=== PATIENT | female | born 1950 | race Caucasian/White ===

== ENCOUNTER 2018-07-29 11:21 | Observation (INO) | payer MEDICARE ==
[2018-07-29] MEDS ORDERED: fentaNYL 100 MCG/2 ML SDV IM ONE (11:42)
--- NOTE | 2018-07-29 11:45 | EDM.PDOC ---
ED HPI GENERAL MEDICAL PROBLEM - General Chief Complaint: Lower Extremity Injury/Pain Stated Complaint: INJURED LEFT FOOT Time Seen by Provider: 07/29/18 11:39 Source of Information: Reports: Patient, Family, RN Notes Reviewed History Limitations: Reports: No Limitations - History of Present Illness INITIAL COMMENTS - FREE TEXT/NARRATIVE: 68-year-old female presents emergency department today following an injury at home, she slipped on snow twisted her left ankle now is experiencing pain cannot ambulate Left Ankle Pain Score (Numeric/FACES): 10 - Related Data Allergies Allergy/AdvReac Type Severity Reaction Status Date / Time adhesive Allergy Rash Verified 05/12/16 08:30 buprenorphine [From Butrans] Allergy Lethargy Verified 05/12/16 08:30 niacin Allergy Rash Verified 05/12/16 08:30 acetaminophen [From Endocet] AdvReac Insomnia Verified 05/12/16 08:30 hydrocodone bitartrate AdvReac Insomnia Verified 05/12/16 08:30 [From Vicodin] milnacipran [From Savella] AdvReac Stomach Verified 05/12/16 09:13 Upset oxycodone HCl [From Endocet] AdvReac Insomnia Verified 05/12/16 08:30 pravastatin AdvReac Stomach Verified 05/12/16 09:13 Upset prochlorperazine edisylate AdvReac Muscle Verified 05/12/16 08:30 [From Compazine] Aches prochlorperazine maleate AdvReac Muscle Verified 05/12/16 08:30 [From Compazine] Aches simvastatin AdvReac Muscle Verified 05/12/16 08:30 Aches Home Meds: Home Meds Diclofenac Sodium [Voltaren 1% Gel] 4 gm TOP QID PRN 04/14/16 [History] Fluticasone Propionate [Flonase] 2 spray ROS DAILY 04/14/16 [History] Gabapentin [Neurontin] 100 mg PO BID 04/14/16 [History] Lisinopril [Prinivil] 40 mg PO DAILY 04/14/16 [History] Multivitamins,Therapeutic [Thera] 1 each PO DAILY 04/14/16 [History] Omeprazole Magnesium [Prilosec Otc] 20 mg PO DAILY 04/14/16 [History] metFORMIN [Glucophage] 1,000 mg PO BIDMEALS 04/14/16 [History] atorvaSTATin [Lipitor] 40 mg PO BEDTIME 04/27/16 [History] Cbd Oil 3 drop PO DAILY 02/28/18 [History] Citalopram [Citalopram HBr] 40 mg PO DAILY 07/10/18 [History] Oxybutynin 5 mg PO DAILY 07/10/18 [History] Hydrocodone/Acetaminophen [Hydrocodon-Acetaminophen 5-325] 1 each PO TID PRN # 20 tablet 07/29/18 [Rx] Past Medical History HEENT History: Reports: Cataract, Impaired Vision Other HEENT History: wears glasses Cardiovascular History: Reports: Arrhythmia, Heart Murmur, High Cholesterol, Hypertension Respiratory History: Reports: Sleep Apnea Gastrointestinal History: Reports: GERD 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: Musculoskeletal History: Reports: Arthritis, Back Pain, Chronic, Fibromyalgia, Neck Pain, Chronic, Osteoarthritis, Other (See Below) Other Musculoskeletal History: R hip pain Psychiatric History: Reports: Depression Endocrine/Metabolic History: Reports: Diabetes, Type II, Hypothyroidism, Osteoporosis Hematologic History: Reports: Iron Deficiency Dermatologic History: Reports: None - Infectious Disease History Infectious Disease History: Reports: Chicken Pox, Measles, Mumps - Past Surgical History HEENT Surgical History: Reports: Adenoidectomy, Naso-Sinus Surgery, Tonsillectomy Cardiovascular Surgical History: Reports: None Respiratory Surgical History: Reports: None GI Surgical History: Reports: Appendectomy, Cholecystectomy, Colonoscopy, EGD Female Surgical History: Reports: Breast Biopsy, Hysterectomy, Salpingo- Oophorectomy Endocrine Surgical History: Reports: None Musculoskeletal Surgical History: Reports: Arthroscopic Knee, Carpal Tunnel, Knee Replacement, Other (See Below) Other Musculoskeletal Surgeries/Procedures:: trigger finger right hand right knee replacement Dermatological Surgical History: Reports: Skin Biopsy Social & Family History - Family History Cardiac: Reports: Hypertension OBGYN: Reports: Endometriosis Musculoskeletal: Reports: Arthritis Neurological: Reports: Alzheimers Disease, CVA, Seizure Psychiatric: Reports: Anxiety, Depression Oncologic: Reports: Bone, Leukemia - Tobacco Use Smoking Status *Q: Current Every Day Smoker Years of Tobacco use: 25 Packs/Tins Daily: 0.5 - Caffeine Use Caffeine Use: Reports: Coffee - Recreational Drug Use Recreational Drug Use: No Review of Systems - Review of Systems Review Of Systems: See Below Musculoskeletal: Reports: Joint Pain (Left ankle) Skin: Reports: Bruising (Left ankle) Neurological: Reports: No Symptoms ED EXAM, GENERAL - Physical Exam Exam: See Below Free Text/Narrative:: Examination left ankle I do appreciate some deformity there is some edema around the ankle it is exquisitely tender to any palpation or movement pedal pulse is +2 ED TRAUMA EXTREMITY PROCEDURES - Splinting Left Lower Extremity Splint Site: left ankle Pre-Procedure NV Status: Normal Post-Procedure NV Status: Normal Splint Material: Fiberglass Splint Design: Posterior Applied & Form Fitted By: Provider, Nurse Provider Post-Splint Application NV Check: NV Status Normal, Good Position Complications: No Course - Vital Signs Last Recorded V/S: Last Vital Signs Temp 98.7 F 07/29/18 11:35 Pulse 87 07/29/18 11:35 Resp 16 07/29/18 11:35 BP 148/54 H 07/29/18 11:35 Pulse Ox 98 07/29/18 11:35 - Orders/Labs/Meds Orders: Active Orders 24 hr Category Date Time Status Peripheral IV Care [RC] . DIRECTED Care 07/29/18 12:13 Active Ankle wo Cont Lt [CT] Stat Exams 07/29/18 13:50 Taken Sodium Chloride 0.9% [Saline Flush] Med 07/29/18 12:13 Active 10 ml FLUSH ASDIRECTED PRN Peripheral IV Insertion Adult [OM.PC] Urgent Oth 07/29/18 12:13 Ordered Medication Orders Sodium Chloride (Saline Flush) 10 ml FLUSH ASDIRECTED PRN PRN Reason: Keep Vein Open Last Admin: 07/29/18 13:10 Dose: 10 ml Meds: Medications Generic Name Dose Route Start Last Admin Trade Name Freq PRN Reason Stop Dose Admin Sodium Chloride 10 ml 07/29/18 12:13 07/29/18 13:10 Saline Flush FLUSH 10 ml ASDIRECTED PRN Administration Keep Vein Open Discontinued Medications Generic Name Dose Route Start Last Admin Trade Name Freq PRN Reason Stop Dose Admin Fentanyl 50 mcg 07/29/18 11:42 07/29/18 11:49 Sublimaze IM 07/29/18 11:43 50 mcg ONETIME ONE Administration Fentanyl 50 mcg 07/29/18 13:19 07/29/18 13:27 Sublimaze IVPUSH 07/29/18 13:20 50 mcg ONETIME ONE Administration Departure - Departure Time of Disposition: 15:09 Disposition: Refer to Observation Condition: Fair Clinical Impression: Fracture of tibia with fibula, left, closed Qualifiers: Encounter type: initial encounter Qualified Code(s): S82.202A - Unspecified fracture of shaft of left tibia, initial encounter for closed fracture; S82.402A - Unspecified fracture of shaft of left fibula, initial encounter for closed fracture Dislocation of left talus Qualifiers: Encounter type: initial encounter Qualified Code(s): S93.05XA - Dislocation of left ankle joint, initial encounter - Discharge Information Prescriptions: Hydrocodone/Acetaminophen [Hydrocodon-Acetaminophen 5-325] 1 each PO TID PRN # 20 tablet PRN Reason: Pain Referrals: Titus Domingo MD [Primary Care Provider] - Forms: ED Department Discharge - My Orders Last 24 Hours: My Active Orders 07/29/18 12:13 Peripheral IV Care [RC] . DIRECTED Sodium Chloride 0.9% [Saline Flush] 10 ml FLUSH ASDIRECTED PRN Peripheral IV Insertion Adult [OM.PC] Urgent 07/29/18 13:50 Ankle wo Cont Lt [CT] Stat - Assessment/Plan Last 24 Hours: My Active Orders 07/29/18 12:13 Peripheral IV Care [RC] . DIRECTED Sodium Chloride 0.9% [Saline Flush] 10 ml FLUSH ASDIRECTED PRN Peripheral IV Insertion Adult [OM.PC] Urgent 07/29/18 13:50 Ankle wo Cont Lt [CT] Stat Plan: Assessment Acuity = acute Site and laterality = dislocation left talus status post reduction fracture left distal tib-fib closed Etiology = secondary trauma Manifestations = none Location of injury = Home Lab values = x-rays described fractures above Plan Called discussed case with Dr. Domingo at 1:10, he agreed to come and evaluate the patient in the emergency department after the posterior splint was placed for definitive plan, prescription written for hydrocodone 5/325 one tab by mouth 3 times a day when necessary total #20, Dr. Domingo, recommend CT scan after review CT scan elected to proceed with surgical intervention at this time therefore she will be admitted under his care This note was dictated using [employer] voice recognition software please call with any questions on syntax or grammar.
[2018-07-29] MEDS ORDERED: Sodium Chloride 0.9% 10 ML Syringe FLUSH PRN (12:13)
--- NOTE | 2018-07-29 12:34 | CR ---
Ankle Min 3V Lt CLINICAL HISTORY: Twisted, fall FINDINGS: The soft tissues are mildly swollen. There is a posterior dislocation of the foot with the fracture of the posterior tibial plafond and. There is also an angulated displaced fracture of the distal fibula aerated. Impression: Tibiotalar dislocation Fractures of the distal tibia and fibula
--- NOTE | 2018-07-29 13:12 | CR ---
Ankle 2V Lt CLINICAL HISTORY: Postreduction FINDINGS: The soft tissues are swollen. The previous tibiotalar dislocation is reduced. Fractures of the tibia and fibula are again seen. There is some asymmetry in the ankle mortise Impression: Reduction of tibiotalar dislocation Distal tibial and fibular fractures
[2018-07-29] MEDS ORDERED: fentaNYL 100 MCG/2 ML SDV IVPUSH ONE (13:19)
--- NOTE | 2018-07-29 15:31 | PCM.HP ---
H&P History of Present Illness - General Date of Service: 07/29/18 Admit Problem/Dx: Admission Diagnosis/Problem Admission Diagnosis/Problem Ankle fracture Source of Information: Patient, Old Records History Limitations: Reports: No Limitations - History of Present Illness Initial Comments - Free Text/Narative: Norma is a 68-year-old female who sustained a fall resulting in injury to her left ankle. She presented to the emergency room with obvious deformity of the left ankle. X-rays confirmed dislocation at the ankle joint. The ankle was reduced by the emergency room physician. She was then placed into a posterior splint. Post reduction x-rays suggested a fracture at the anterior aspect of the tibia as well as the posterior malleolus. A CT scan was obtained. This confirmed fracture of the posterior malleolus and a displaced fracture at the attachment of the anterior talofibular ligament and also revealed a nondisplaced distal fibular fracture and a nondisplaced medial malleolus fracture. Onset of Symptoms: Reports: Today, Sudden Location: Reports: Lower Extremity, Left Quality: Reports: Sharp, Stabbing Severity: Severe Improves with: Reports: Rest Worsens with: Reports: Movement Associated Symptoms: Reports: No Other Symptoms Left Ankle Pain Score (Numeric/FACES): 10 - Related Data Allergies/Adverse Reactions: Allergies Allergy/AdvReac Type Severity Reaction Status Date / Time adhesive Allergy Rash Verified 05/12/16 08:30 buprenorphine [From Butrans] Allergy Lethargy Verified 05/12/16 08:30 niacin Allergy Rash Verified 05/12/16 08:30 acetaminophen [From Endocet] AdvReac Insomnia Verified 05/12/16 08:30 hydrocodone bitartrate AdvReac Insomnia Verified 05/12/16 08:30 [From Vicodin] milnacipran [From Savella] AdvReac Stomach Verified 05/12/16 09:13 Upset oxycodone HCl [From Endocet] AdvReac Insomnia Verified 05/12/16 08:30 pravastatin AdvReac Stomach Verified 05/12/16 09:13 Upset prochlorperazine edisylate AdvReac Muscle Verified 05/12/16 08:30 [From Compazine] Aches prochlorperazine maleate AdvReac Muscle Verified 05/12/16 08:30 [From Compazine] Aches simvastatin AdvReac Muscle Verified 05/12/16 08:30 Aches Home Medications: Home Meds Diclofenac Sodium [Voltaren 1% Gel] 4 gm TOP QID PRN 04/14/16 [History] Fluticasone Propionate [Flonase] 2 spray ROS DAILY 04/14/16 [History] Gabapentin [Neurontin] 100 mg PO BID 04/14/16 [History] Lisinopril [Prinivil] 40 mg PO DAILY 04/14/16 [History] Multivitamins,Therapeutic [Thera] 1 each PO DAILY 04/14/16 [History] Omeprazole Magnesium [Prilosec Otc] 20 mg PO DAILY 04/14/16 [History] metFORMIN [Glucophage] 1,000 mg PO BIDMEALS 04/14/16 [History] atorvaSTATin [Lipitor] 40 mg PO BEDTIME 04/27/16 [History] Cbd Oil 3 drop PO DAILY 02/28/18 [History] Citalopram [Citalopram HBr] 40 mg PO DAILY 07/10/18 [History] Oxybutynin 5 mg PO DAILY 07/10/18 [History] Hydrocodone/Acetaminophen [Hydrocodon-Acetaminophen 5-325] 1 each PO TID PRN # 20 tablet 07/29/18 [Rx] Past Medical History HEENT History: Reports: Cataract, Impaired Vision Other HEENT History: wears glasses Cardiovascular History: Reports: Arrhythmia, Heart Murmur, High Cholesterol, Hypertension Respiratory History: Reports: Sleep Apnea Gastrointestinal History: Reports: GERD Genitourinary History: Reports: None 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: Musculoskeletal History: Reports: Arthritis, Back Pain, Chronic, Fibromyalgia, Neck Pain, Chronic, Osteoarthritis, Other (See Below) Other Musculoskeletal History: R hip pain Psychiatric History: Reports: Depression Endocrine/Metabolic History: Reports: Diabetes, Type II, Hypothyroidism, Osteoporosis Hematologic History: Reports: Iron Deficiency Dermatologic History: Reports: None - Infectious Disease History Infectious Disease History: Reports: Chicken Pox, Measles, Mumps - Past Surgical History HEENT Surgical History: Reports: Adenoidectomy, Naso-Sinus Surgery, Tonsillectomy Cardiovascular Surgical History: Reports: None Respiratory Surgical History: Reports: None GI Surgical History: Reports: Appendectomy, Cholecystectomy, Colonoscopy, EGD Female Surgical History: Reports: Breast Biopsy, Hysterectomy, Salpingo- Oophorectomy Endocrine Surgical History: Reports: None Musculoskeletal Surgical History: Reports: Arthroscopic Knee, Carpal Tunnel, Knee Replacement, Other (See Below) Other Musculoskeletal Surgeries/Procedures:: trigger finger right hand right knee replacement Dermatological Surgical History: Reports: Skin Biopsy Social & Family History - Family History Cardiac: Reports: Hypertension OBGYN: Reports: Endometriosis Musculoskeletal: Reports: Arthritis Neurological: Reports: Alzheimers Disease, CVA, Seizure Psychiatric: Reports: Anxiety, Depression Oncologic: Reports: Bone, Leukemia - Tobacco Use Smoking Status *Q: Current Every Day Smoker Years of Tobacco use: 25 Packs/Tins Daily: 0.5 - Caffeine Use Caffeine Use: Reports: Coffee - Recreational Drug Use Recreational Drug Use: No H&P Review of Systems - Review of Systems: Review Of Systems: ROS reveals no pertinent complaints other than HPI. Exam - Exam Exam: See Below - Vital Signs Vital Signs: Last Vital Signs Temp 37.1 C 07/29/18 11:35 Pulse 87 07/29/18 11:35 Resp 16 07/29/18 11:35 BP 148/54 H 07/29/18 11:35 Pulse Ox 98 07/29/18 11:35 Weight: 66.224 kg - Exam General: Alert, Oriented, 4 HEENT: PERRLA, Hearing Intact, Mucosa Moist & [place], Nares Patent, Normal Nasal Septum, Posterior Pharynx Clear, Conjunctiva Clear, EOMI, EACs Clear, TMs Clear Neck: Supple, Trachea Midline, 2 Lungs: Clear to Auscultation, Normal Respiratory Effort Cardiovascular: Regular Rate, Regular Rhythm GI/Abdominal Exam: Normal Bowel Sounds, Soft, Non-Tender, No Organomegaly, No Distention, No Abnormal Bruit, No Mass, Pelvis Stable (Female) Exam: Deferred Rectal (Female) Exam: Deferred Back Exam: Normal Inspection, Full Range of Motion, NT Extremities: Joint Swelling, Limited Range of Motion Peripheral Pulses: 2+: Radial (L), Radial (R), Dorsalis Pedis (L), Dorsalis Pedis (R) Skin: Warm, Dry, Intact Neurological: Cranial Nerves Intact, Reflexes Equal Bilateral Neuro Extensive - Mental Status: Alert, Oriented x3, Normal Mood/Affect, Normal Cognition Neuro Extensive - Motor, Sensory, Reflexes: CN II-XII Intact, Normal Gait, Normal Reflexes Psychiatric: Alert, Normal Affect, Normal Mood Physical Exam Comments:: The left ankle has been reduced and placed into a posterior splint. She is relatively comfortable without motion. Toes are pink and warm capillary refill is brisk and sensation is normal *Q Meaningful Use (ADM) - VTE *Q VTE Pharmacological Contraindications *Q: Patient Scheduled Surgery - VTE Risk Assess *Q Each Risk Factor Represents 1 Point: Minor Surgery Planned Total Score 1 Point Risk Factors: 1 Each Risk Factor Represents 2 Points: Age 60 - 74 Years Total Score 2 Point Risk Factors: 2 Each Risk Factor Represents 3 Points: None Total Score 3 Point Risk Factors: 0 Each Risk Factor Represents 5 Points: None Total Score 5 Point Risk Factors: 0 Venous Thromboembolism Risk Factor Score *Q: 3 - Problem List (1) Dislocation of left talus SNOMED Code(s): 611360686 ICD Code: S93.05XA - DISLOCATION OF LEFT ANKLE JOINT, INITIAL ENCOUNTER Status: Acute Current Visit: Yes Qualifiers: Encounter type: initial encounter Qualified Code(s): S93.05XA - Dislocation of left ankle joint, initial encounter (2) Fracture of tibia with fibula, left, closed SNOMED Code(s): 033003078 ICD Code: S82.202A - UNSP FRACTURE OF SHAFT OF LEFT TIBIA, INIT FOR CLOS FX; S82.402A - UNSP FRACTURE OF SHAFT OF LEFT FIBULA, INIT FOR CLOS FX Status: Acute Current Visit: Yes Qualifiers: Encounter type: initial encounter Qualified Code(s): S82.202A - Unspecified fracture of shaft of left tibia, initial encounter for closed fracture; S82.402A - Unspecified fracture of shaft of left fibula, initial encounter for closed fracture Problem List Initiated/Reviewed/Updated: Yes Orders Last 24hrs: Active Orders 24 hr Category Date Time Status Admission Diagnosis [ADT] Urgent ADT 07/29/18 15:13 Ordered Peripheral IV Care [RC] . DIRECTED Care 07/29/18 12:13 Active Verify Patient Consent Obtain [RC] ASDIRECTED Care 07/29/18 15:14 Ordered NPO [Nothing Per Oral Diet] [DIET] Diet 07/29/18 Dinner Ordered Ankle wo Cont Lt [CT] Stat Exams 07/29/18 13:50 Taken Sodium Chloride 0.9% [Saline Flush] Med 07/29/18 12:13 Active 10 ml FLUSH ASDIRECTED PRN ceFAZolin [Ancef] 1 gm Med 07/29/18 15:17 Ordered Premix Bag 1 bag IV ONETIME Peripheral IV Insertion Adult [OM.PC] Urgent Oth 07/29/18 12:13 Ordered Medication Orders Cefazolin Sodium/Dextrose 1 gm (/ Premix) 50 mls @ 100 mls/hr IV ONETIME ONE Stop: 07/29/18 16:29 Sodium Chloride (Saline Flush) 10 ml FLUSH ASDIRECTED PRN PRN Reason: Keep Vein Open Last Admin: 07/29/18 13:10 Dose: 10 ml Assessment/Plan Comment:: I reviewed the results of the x-rays and CT scan with Norma and her . Informed them that it is possible to treat this nonoperatively but there is risk of displacement of the fractures and instability of the ankle and increased risk of posttraumatic arthritis. The other option would be open reduction and internal fixation with plate on the fibula and screw fixation of the medial and posterior malleoli as well as the anterior table fibular fragment. This would allow anatomic, or near anatomic, reduction and fixation which would allow earlier range of motion and weightbearing and prevent displacement. Risks, benefits and potential complications of conservative versus surgical treatments were discussed. Plan open reduction and internal fixation left ankle. Patient agrees with the plan. She will be admitted for surgery. Plan will be to keep her overnight for pain control and monitoring of circulatory status and compartment syndrome as well as physical therapy for ambulation with crutches and/or walker.
[2018-07-29] MEDS ORDERED: fentaNYL 250 MCG/5 ML SDV ONE (15:38)
[2018-07-29] MEDS ORDERED: Ondansetron 4 MG/2 ML SDV ONE (15:45)
[2018-07-29] MEDS ORDERED: Propofol 200 MG/20 ML SDV ONE (15:45)
[2018-07-29] MEDS ORDERED: Dexamethasone 4 MG/ML SDV ONE (15:45)
[2018-07-29] MEDS ORDERED: Rocuronium 50 MG/5 ML Vial ONE (15:45)
[2018-07-29] MEDS ORDERED: Succinylcholine 200 MG/10 ML MDV ONE (15:45)
[2018-07-29] MEDS ORDERED: Bupivacaine 0.5% 50 ML MDV ONE (15:59)
[2018-07-29] MEDS ORDERED: ceFAZolin 1 GM in Premix Bag 1 BAG IV ONE (16:00)
[2018-07-29] MEDS ORDERED: Glycopyrrolate 0.2 MG/ML 5 ML MDV ONE (17:03)
[2018-07-29] MEDS ORDERED: Neostigmine Methylsulfate 1 MG/ML 5 ML Syringe ONE (17:03)
[2018-07-29] MEDS ORDERED: Sodium Chloride 0.9% 1,000 ML IV SCH (18:15)
[2018-07-29] MEDS ORDERED: Bupivacaine 0.5% 30 ML SDV INFILT ONE (18:54)
[2018-07-29] MEDS: Morphine 2 MG/ML Syringe IVPUSH PRN ×2 (19:09→21:22)
--- NOTE | 2018-07-29 19:46 | PCM.OPNOTE ---
- General Post-Op/Procedure Note Date of Surgery/Procedure: 07/29/18 Operative Procedure(s): OPen Reduction and Internal FFixation Left Ankle Findings: Displaced posterior malleolus and anterior talofibular ligament attachment fragment, non-displaced medial and lateral malleoli fractures. Pre Op Diagnosis: dislocation left ankle with multiple fractures Post-Op Diagnosis: dislocation left ankle with multiple fractures Anesthesia Technique: General ET Tube Secondary Surgeon: Titus Domingo EBCachorro in mLs: 10 Condition: Good Free Text/Narrative:: Indications; Norma is a 68-year-old female who presented to the emergency room with a dislocation of the left ankle. Post reduction x-rays and CT scan revealed displaced fracture fragments, specifically the posterior malleolus and anterior tibia at the insertion of the talofibular ligament. The CT also revealed nondisplaced fractures of the medial and lateral malleoli. Due to the displaced fragments potential for instability of the other fractures, open reduction internal fixation is recommended. Risks, benefits and potential complications were discussed with Norma and her family They agree with the plan. Procedure: After adequate anesthesia was obtained and 1 g of Ancef was given IV the patient was placed supine with a tourniquet about the left upper thigh. Left leg and foot were then prepped and draped in a sterile fashion.Leg was exsanguinated and 250 mg of mercury pressure was used for the tourniquet. Longitudinal incision was made over the fibula and carried down through the subcutaneous tissues. A contoured Synthes lateral malleolus plate was secured to the lateral fibula using 3.5cortical screws proximally and 2.7 locking screws distally. Position of the fracture and hardware were confirmed using fluoroscopy. Dissection then carried slightly medial over the anterior talofibular ligament. Branch of the nerve and vein were dissected away from the fracture fragment the displaced fragment was readily identified. This was reduced into position and held with a periosteal elevator. The fragment was then drilled and a partially threaded cancellus screw with a washer was used to compress the fragment into position. Position was confirmed using fluoroscopy. A separate small incision was made over the medial malleolus. A second 40 mm partially threaded cancellus screw was then placed in the medial malleolus, position confirmed again with fluoroscopy. A separate incision was made posteriorly adjacent to the Achilles tendon. Blunt dissection was carried down to the level of the posterior malleolus fragment.With the foot held in dorsiflexion and the periosteal elevator used to reduce the fragment it was drilled and a partially threaded cancellus screw with a washer was placed compressing the fracture. Final position of all hardware was confirmed using fluoroscopy. We then irrigated. Deep layer was closed laterally with 0 Vicryl. Skin was closed with 2-0 Vicryl and 3-0 Monocryl subcuticular stitch. Steri- Strips were applied.Incisions and soft tissues were then infiltrated with 0.5% Marcaine. Sterile dressing was then applied and a well-padded AO splint was then placed with the foot in neutral position. Patient tolerated the procedure well and there were no complications she was taken from the operating room in a stable condition
[2018-07-29] MEDS ORDERED: atorvaSTATin 20 MG Tab PO SCH (21:00)
[2018-07-29] MEDS: Acetaminophen/HYDROcodone 325-5 MG Tab PO PRN (21:21)
[2018-07-29] MEDS: Gabapentin 100 MG Cap PO SCH (21:35)
[2018-07-30] MEDS: Acetaminophen/HYDROcodone 325-5 MG Tab PO PRN ×4 (01:14→10:52)
[2018-07-30] MEDS: Morphine 2 MG/ML Syringe IVPUSH PRN ×4 (01:14→14:18)
[2018-07-30] MEDS ORDERED: Pantoprazole 40 MG Tab.CR PO SCH (07:30)
[2018-07-30] MEDS ORDERED: metFORMIN 500 MG Tab PO SCH (08:00)
[2018-07-30] MEDS ORDERED: Oxybutynin 5 MG Tab PO SCH (09:00)
[2018-07-30] MEDS ORDERED: Lisinopril 20 MG Tab PO SCH (09:00)
[2018-07-30] MEDS ORDERED: Citalopram 20 MG Tab PO SCH (09:00)
[2018-07-30] MEDS: Gabapentin 100 MG Cap PO SCH (10:53)
[2018-07-30 11:13] VITALS: BP 124/56
== END 2018-07-30 14:23 | disposition home health service (06) ==
LOC: JP.ED 11:21 → JP.ACU 15:10 → JP.MS 18:13
PROVIDERS: ADMIT Specialist; ATTEND Specialist
DX: S82.845A Nondisplaced bimalleolar fracture of left lower leg, initial encounter for closed fracture (principal); S82.892A Other fracture of left lower leg, initial encounter for closed fracture; S93.05XA Dislocation of left ankle joint, initial encounter; I10 Essential (primary) hypertension; E11.9 Type 2 diabetes mellitus without complications; F17.200 Nicotine dependence, unspecified, uncomplicated; G47.33 Obstructive sleep apnea (adult) (pediatric); F32.9 Major depressive disorder, single episode, unspecified; E03.9 Hypothyroidism, unspecified; E78.00 Pure hypercholesterolemia, unspecified; Z79.84 Long term (current) use of oral hypoglycemic drugs; Z79.899 Other long term (current) drug therapy; W19.XXXA Unspecified fall, initial encounter
CPT/HCPCS: 27822; 36415; 73600; 73610; 73700; 76000; 80048; 82962; 85025; 96372; 96374; 96375; 97162; 97165; 97530; 97535; 99285; A9270; C1713; J0330; J0690; J1100; J2270; J2405; J2704; J2710; J3010; J3490; J7030; G0378

== ENCOUNTER 2018-09-28 15:33 | Emergency (ER) | payer MEDICARE ==
[2018-09-28] MEDS ORDERED: ALPRAZolam 0.25 MG Tab PO ONE ×2 (16:13→16:54)
[2018-09-28] MEDS ORDERED: traMADol 50 MG Tab PO ONE ×2 (16:13→16:53)
--- NOTE | 2018-09-28 16:19 | EDM.PDOC ---
ED HPI GENERAL MEDICAL PROBLEM - General Chief Complaint: General Stated Complaint: SHAKING ALL OVER Time Seen by Provider: 09/28/18 16:05 Source of Information: Reports: Patient, Old Records History Limitations: Reports: No Limitations - History of Present Illness INITIAL COMMENTS - FREE TEXT/NARRATIVE: 68 yo female with depression not responding satisfactorily to her current antidepressants and chronic fibromyalgia presents with worsening of her fibromyalgia and a total body tremor that began about 1 pm today. Has had the tremor in the past and it resolved on its own after a couple of hrs. Has never seen her provider for the tremors. Had some tingling of her hands, damion her thumbs earlier. 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) - Related Data Allergies Allergy/AdvReac Type Severity Reaction Status Date / Time adhesive Allergy Rash Verified 05/12/16 08:30 buprenorphine [From Butrans] Allergy Lethargy Verified 05/12/16 08:30 niacin Allergy Rash Verified 05/12/16 08:30 acetaminophen [From Endocet] AdvReac Insomnia Verified 05/12/16 08:30 hydrocodone bitartrate AdvReac Insomnia Verified 05/12/16 08:30 [From Vicodin] milnacipran [From Savella] AdvReac Stomach Verified 05/12/16 09:13 Upset oxycodone HCl [From Endocet] AdvReac Insomnia Verified 05/12/16 08:30 pravastatin AdvReac Stomach Verified 05/12/16 09:13 Upset prochlorperazine edisylate AdvReac Muscle Verified 05/12/16 08:30 [From Compazine] Aches prochlorperazine maleate AdvReac Muscle Verified 05/12/16 08:30 [From Compazine] Aches simvastatin AdvReac Muscle Verified 05/12/16 08:30 Aches Home Meds: Home Meds Diclofenac Sodium [Voltaren 1% Gel] 4 gm TOP QID PRN 04/14/16 [History] Fluticasone Propionate [Flonase] 2 spray ROS DAILY 04/14/16 [History] Gabapentin [Neurontin] 100 mg PO BID 04/14/16 [History] Lisinopril [Prinivil] 40 mg PO DAILY 04/14/16 [History] Multivitamins,Therapeutic [Thera] 1 each PO DAILY 04/14/16 [History] Omeprazole Magnesium [Prilosec Otc] 20 mg PO DAILY 04/14/16 [History] metFORMIN [Glucophage] 1,000 mg PO BIDMEALS 04/14/16 [History] atorvaSTATin [Lipitor] 40 mg PO DAILY 04/27/16 [History] Cbd Oil 3 drop PO DAILY 02/28/18 [History] Citalopram [Citalopram HBr] 40 mg PO DAILY 07/10/18 [History] Oxybutynin 5 mg PO BID 07/10/18 [History] Past Medical History HEENT History: Reports: Cataract, Impaired Vision Other HEENT History: wears glasses Cardiovascular History: Reports: Arrhythmia, Heart Murmur, High Cholesterol, Hypertension Respiratory History: Reports: Sleep Apnea, Other (See Below) Other Respiratory History: 0.5ppd cigarette smoking Gastrointestinal History: Reports: GERD Genitourinary History: Reports: None 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: Musculoskeletal History: Reports: Arthritis, Back Pain, Chronic, Fracture, Fibromyalgia, Neck Pain, Chronic, Osteoarthritis, Other (See Below) Other Musculoskeletal History: R hip pain, h/o B trochanteric bursitis (2013), h /o L proximal foot fracture (patient notes on dorsal aspect, age 30's), h/o coccyx fracture from fall down home stairs (reports no residual issues) Neurological History: Reports: None Psychiatric History: Reports: Depression Endocrine/Metabolic History: Reports: Diabetes, Type II, Hypothyroidism, Osteoporosis Hematologic History: Reports: Iron Deficiency Immunologic History: Reports: None Oncologic (Cancer) History: Reports: None Dermatologic History: Reports: None - Infectious Disease History Infectious Disease History: Reports: Chicken Pox, Measles, Mumps - Past Surgical History Head Surgeries/Procedures: Reports: None HEENT Surgical History: Reports: Adenoidectomy, Naso-Sinus Surgery, Tonsillectomy Cardiovascular Surgical History: Reports: None Respiratory Surgical History: Reports: None GI Surgical History: Reports: Appendectomy, Cholecystectomy, Colonoscopy, EGD Female Surgical History: Reports: Breast Biopsy, Hysterectomy, Salpingo- Oophorectomy Endocrine Surgical History: Reports: None Musculoskeletal Surgical History: Reports: Arthroscopic Knee, Carpal Tunnel, Knee Replacement, Shoulder Replacement, Other (See Below) Other Musculoskeletal Surgeries/Procedures:: trigger finger right hand; R knee arthroscopy torn meniscus (2015), R TKA, B TSA Dermatological Surgical History: Reports: Skin Biopsy Social & Family History - Family History Cardiac: Reports: Hypertension OBGYN: Reports: Endometriosis Musculoskeletal: Reports: Arthritis Neurological: Reports: Alzheimers Disease, CVA, Seizure Psychiatric: Reports: Anxiety, Depression Oncologic: Reports: Bone, Leukemia - Tobacco Use Smoking Status *Q: Light Tobacco Smoker Years of Tobacco use: 34 Packs/Tins Daily: 0.1 - Caffeine Use Caffeine Use: Reports: Coffee - Recreational Drug Use Recreational Drug Use: No ED ROS GENERAL - Review of Systems Review Of Systems: See Below Constitutional: Reports: No Symptoms HEENT: Reports: No Symptoms Respiratory: Reports: No Symptoms Cardiovascular: Reports: No Symptoms Endocrine: Reports: No Symptoms GI/Abdominal: Reports: No Symptoms : Reports: No Symptoms Musculoskeletal: Reports: Other (total body pain from a flare of her fibromyalgia) Skin: Reports: No Symptoms Neurological: Reports: Numbness (hands) Psychiatric: Reports: Depression (not responding to her tx's) ED EXAM, GENERAL - Physical Exam Exam: See Below Exam Limited By: No Limitations General Appearance: Alert, WD/WN, No Apparent Distress Eye Exam: Bilateral Eye: Normal Inspection Ears: Normal External Exam, Normal Canal, Hearing Grossly Normal, Normal TMs Ear Exam: Bilateral Ear: Auricle Normal, Canal Normal, TM normal Nose: Normal Inspection, Normal Mucosa, No Blood Throat/Mouth: Normal Inspection, Normal Lips, Normal Oropharynx, Normal Voice, No Airway Compromise Head: Atraumatic, Normocephalic Neck: Normal Inspection, Supple, Non-Tender Respiratory/Chest: No Respiratory Distress, Lungs Clear, Normal Breath Sounds, No Accessory Muscle Use, Other (some hyperventilation noted.) Cardiovascular: Regular Rate, Rhythm, No Edema GI/Abdominal: Normal Bowel Sounds, Soft, Non-Tender, No Distention Back Exam: Normal Inspection. No: CVA Tenderness (R), CVA Tenderness (L) Extremities: Normal Inspection, Normal Range of Motion, Non-Tender, No Pedal Edema Neurological: Alert, Oriented, CN II-XII Intact, Normal Cognition, No Motor/ Sensory Deficits, Other (total body tremor noted, present at rest) Psychiatric: Normal Affect, Normal Mood Skin Exam: Warm, Dry, Intact, Normal Color, No Rash Course - Vital Signs Text/Narrative:: Better, no tremors after Xanax 0.25 mg Last Recorded V/S: Last Vital Signs Temp 37.2 C 09/28/18 16:07 Pulse 100 09/28/18 16:26 Resp 16 09/28/18 16:07 BP 115/84 09/28/18 16:26 Pulse Ox 100 09/28/18 16:07 - Orders/Labs/Meds Meds: Medications Discontinued Medications Generic Name Dose Route Start Last Admin Trade Name Freq PRN Reason Stop Dose Admin Alprazolam 0.25 mg 09/28/18 16:13 09/28/18 16:18 Xanax PO 09/28/18 16:14 0.25 mg NOW ONE Administration Alprazolam 0.25 mg 09/28/18 16:54 09/28/18 17:00 Xanax PO 09/28/18 16:55 0.25 mg NOW ONE Administration Ondansetron HCl 4 mg 09/28/18 16:23 09/28/18 16:29 Zofran Odt PO 09/28/18 16:24 4 mg ONETIME ONE Administration Tramadol HCl 50 mg 09/28/18 16:13 09/28/18 16:18 Ultram PO 09/28/18 16:14 50 mg ONETIME ONE Administration Tramadol HCl 50 mg 09/28/18 16:53 09/28/18 17:00 Ultram PO 09/28/18 16:54 50 mg ONETIME ONE Administration Departure - Departure Time of Disposition: 17:29 Disposition: Home, Self-Care 01 Condition: Fair Clinical Impression: Anxiety and depression, Fibromyalgia Headache Qualifiers: Headache type: unspecified Headache chronicity pattern: acute headache Intractability: not intractable Qualified Code(s): R51 - Headache - Discharge Information *PRESCRIPTION DRUG MONITORING PROGRAM REVIEWED*: No *COPY OF PRESCRIPTION DRUG MONITORING REPORT IN PATIENT [id number]: No Referrals: Matthew Wadsworth MD [Primary Care Provider] - Forms: ED Department Discharge Additional Instructions: Take tramadol 50-100 mg every 6-8 hrs prn SHAIKH/pain. Take acetaminophen up to 1000 mg every 6 hrs for added relief. Take alprazolam 0.25 mg every 8 hrs as neeeded for anxiety. Follow up with your doctor for recheck to discuss your depression.
[2018-09-28] MEDS ORDERED: Ondansetron 4 MG Tab.DIS PO ONE (16:23)
[2018-09-28 16:27] VITALS: BP 115/84
== END 2018-09-28 17:44 | disposition home or self-care (01) ==
LOC: JP.ED 15:33
DX: M79.7 Fibromyalgia (principal); F41.9 Anxiety disorder, unspecified; F32.9 Major depressive disorder, single episode, unspecified; R51 Headache; E11.9 Type 2 diabetes mellitus without complications; E03.9 Hypothyroidism, unspecified; K21.9 Gastro-esophageal reflux disease without esophagitis; Z79.84 Long term (current) use of oral hypoglycemic drugs; Z79.899 Other long term (current) drug therapy; Z91.09 Other allergy status, other than to drugs and biological substances; Z88.8 Allergy status to other drugs, medicaments and biological substances; Z88.6 Allergy status to analgesic agent
CPT/HCPCS: 99283; A9270

== ENCOUNTER 2018-09-29 19:36 | Emergency (ER) | payer MEDICARE ==
--- NOTE | 2018-09-29 20:25 | EDM.PDOC ---
ED HPI GENERAL MEDICAL PROBLEM - General Chief Complaint: Neurological Problem Stated Complaint: CONFUSION Time Seen by Provider: 09/29/18 20:00 Source of Information: Reports: Patient, Family History Limitations: Reports: No Limitations - History of Present Illness INITIAL COMMENTS - FREE TEXT/NARRATIVE: 68-year-old female who had an episode of significant confusion and decreased responsiveness at home. She was helped to the bathroom by her and she wasn't communicating, unsteady and shuffling her feet. She had a "blank stare". She then had an episode of incontinence which she has never had before. They checked her blood sugar and it was 136. She slowly started to improve and now seems to be back to baseline. She was seen in the emergency room yesterday with tremor and treated with medication. She was unable to take her medicines today for some reason. She had vomiting yesterday, none today. Denies any significant headache but she does have some mild cold symptoms, chronic cough. She does have a fever today. Denies any abdominal symptoms such as nausea vomiting or diarrhea today. No rashes. No urinary symptoms. Onset: Sudden Duration: Minutes: (Episode lasted 20-30 minutes) Associated Symptoms: Reports: Confusion, Cough, Fever/Chills, Malaise, Syncope, Weakness. Denies: Chest Pain - Related Data Allergies Allergy/AdvReac Type Severity Reaction Status Date / Time adhesive Allergy Rash Verified 09/29/18 20:00 buprenorphine [From Butrans] Allergy Lethargy Verified 09/29/18 20:00 niacin Allergy Rash Verified 09/29/18 20:00 acetaminophen [From Endocet] AdvReac Insomnia Verified 09/29/18 20:00 hydrocodone bitartrate AdvReac Insomnia Verified 09/29/18 20:00 [From Vicodin] milnacipran [From Savella] AdvReac Stomach Verified 09/29/18 20:00 Upset oxycodone HCl [From Endocet] AdvReac Insomnia Verified 09/29/18 20:00 pravastatin AdvReac Stomach Verified 09/29/18 20:00 Upset prochlorperazine edisylate AdvReac Muscle Verified 09/29/18 20:00 [From Compazine] Aches prochlorperazine maleate AdvReac Muscle Verified 09/29/18 20:00 [From Compazine] Aches simvastatin AdvReac Muscle Verified 09/29/18 20:00 Aches Home Meds: Home Meds Diclofenac Sodium [Voltaren 1% Gel] 4 gm TOP QID PRN 04/14/16 [History] Fluticasone Propionate [Flonase] 2 spray ROS DAILY 04/14/16 [History] Gabapentin [Neurontin] 100 mg PO BID 04/14/16 [History] Lisinopril [Prinivil] 40 mg PO DAILY 04/14/16 [History] Multivitamins,Therapeutic [Thera] 1 each PO DAILY 04/14/16 [History] Omeprazole Magnesium [Prilosec Otc] 20 mg PO DAILY 04/14/16 [History] metFORMIN [Glucophage] 1,000 mg PO BIDMEALS 04/14/16 [History] atorvaSTATin [Lipitor] 40 mg PO DAILY 04/27/16 [History] Cbd Oil 3 drop PO DAILY 02/28/18 [History] Citalopram [Citalopram HBr] 40 mg PO DAILY 07/10/18 [History] Oxybutynin 5 mg PO BID 07/10/18 [History] ALPRAZolam [Alprazolam] 0.25 mg PO TID PRN #7 tablet 09/28/18 [Rx] traMADol [Ultram] 50 - 100 mg PO Q6H PRN #14 tab 09/28/18 [Rx] Past Medical History HEENT History: Reports: Cataract, Impaired Vision Other HEENT History: wears glasses Cardiovascular History: Reports: Arrhythmia, Heart Murmur, High Cholesterol, Hypertension Respiratory History: Reports: Sleep Apnea, Other (See Below) Other Respiratory History: 0.5ppd cigarette smoking Gastrointestinal History: Reports: GERD Genitourinary History: Reports: None 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: Musculoskeletal History: Reports: Arthritis, Back Pain, Chronic, Fracture, Fibromyalgia, Neck Pain, Chronic, Osteoarthritis, Other (See Below) Other Musculoskeletal History: R hip pain, h/o B trochanteric bursitis (2013), h /o L proximal foot fracture (patient notes on dorsal aspect, age 29's), h/o coccyx fracture from fall down home stairs (reports no residual issues) Neurological History: Reports: None Psychiatric History: Reports: Depression Endocrine/Metabolic History: Reports: Diabetes, Type II, Hypothyroidism, Osteoporosis Hematologic History: Reports: Iron Deficiency Immunologic History: Reports: None Oncologic (Cancer) History: Reports: None Dermatologic History: Reports: None - Infectious Disease History Infectious Disease History: Reports: Chicken Pox, Measles, Mumps - Past Surgical History Head Surgeries/Procedures: Reports: None HEENT Surgical History: Reports: Adenoidectomy, Naso-Sinus Surgery, Tonsillectomy Cardiovascular Surgical History: Reports: None Respiratory Surgical History: Reports: None GI Surgical History: Reports: Appendectomy, Cholecystectomy, Colonoscopy, EGD Female Surgical History: Reports: Breast Biopsy, Hysterectomy, Salpingo- Oophorectomy Endocrine Surgical History: Reports: None Musculoskeletal Surgical History: Reports: Arthroscopic Knee, Carpal Tunnel, Knee Replacement, Shoulder Replacement, Other (See Below) Other Musculoskeletal Surgeries/Procedures:: trigger finger right hand; R knee arthroscopy torn meniscus (2014), R TKA, B TSA Dermatological Surgical History: Reports: Skin Biopsy Social & Family History - Family History Cardiac: Reports: Hypertension OBGYN: Reports: Endometriosis Musculoskeletal: Reports: Arthritis Neurological: Reports: Alzheimers Disease, CVA, Seizure Psychiatric: Reports: Anxiety, Depression Oncologic: Reports: Bone, Leukemia - Tobacco Use Smoking Status *Q: Current Every Day Smoker Years of Tobacco use: 50 Packs/Tins Daily: 0.3 - Caffeine Use Caffeine Use: Reports: Coffee - Recreational Drug Use Recreational Drug Use: No ED ROS GENERAL - Review of Systems Review Of Systems: See Below Constitutional: Reports: Fever, Chills, Malaise HEENT: Denies: Nosebleed, Vision Change Respiratory: Reports: Cough. Denies: Shortness of Breath, Sputum Cardiovascular: Denies: Chest Pain GI/Abdominal: Reports: Vomiting (Some vomiting yesterday, none today). Denies: Abdominal Pain, Nausea : Reports: Incontinence (Episode of urinary incontinence during her spell) Skin: Reports: No Symptoms Neurological: Reports: Dizziness Psychiatric: Reports: Anxiety ED EXAM, NEURO - Physical Exam Exam: See Below Exam Limited By: No Limitations General Appearance: Alert, No Apparent Distress, Other (Communicating normally, looks perfectly stable and basically asymptomatic) Eye Exam: Bilateral Eye: EOMI (No jaundice) Throat/Mouth: Normal Inspection Head Exam: Atraumatic Neck: Normal Inspection Respiratory/Chest: No Respiratory Distress, Lungs Clear Cardiovascular: Regular Rate, Rhythm, Systolic Murmur (Faint systolic murmur) GI/Abdominal: Normal Bowel Sounds, Soft, Non-Tender Neurological: Alert, No Motor/Sensory Deficits Extremities: Normal Inspection. No: Pedal Edema Psychiatric: Normal Affect, Normal Mood Skin Exam: Warm, Dry Course - Vital Signs Last Recorded V/S: Last Vital Signs Temp 101.4 F H 09/29/18 19:59 Pulse 84 09/29/18 20:53 Resp 16 09/29/18 19:59 BP 122/55 L 09/29/18 20:53 Pulse Ox 95 09/29/18 19:59 - Orders/Labs/Meds Orders: Active Orders 24 hr Category Date Time Status CULTURE URINE [RM] Stat Lab 09/29/18 20:49 Received Labs: Laboratory Tests 09/29/18 09/29/18 09/29/18 Range/Units 20:20 20:33 20:33 WBC 15.8 H (4.5-11.0) K/uL RBC 3.31 (3.30-5.50) M/uL Hgb 9.9 L (12.0-15.0) g/dL Hct 28.6 L (36.0-48.0) % MCV 86 (80-98) fL MCH 30 (27-31) pg MCHC 35 (32-36) % Plt Count 340 (150-400) K/uL Neut % (Auto) 82 H (36-66) % Lymph % (Auto) 6 L (24-44) % [place] % (Auto) 12 H (2-6) % Eos % (Auto) 0 L (2-4) % Baso % (Auto) 0 (0-1) % Sodium 123 L (140-148) mmol/L Potassium 4.4 (3.6-5.2) mmol/L Chloride 89 L (100-108) mmol/L Carbon Dioxide 24 (21-32) mmol/L Anion Gap 14.4 H (5.0-14.0) mmol/L BUN 20 H D (7-18) mg/dL Creatinine 1.3 H D (0.6-1.0) mg/dL Est Cr Clr Drug Dosing 35.27 mL/min Estimated GFR (MDRD) 41 L (>60) Glucose 125 H (74-106) mg/dL Calcium 9.1 (8.5-10.1) mg/dL Total Bilirubin 0.3 (0.2-1.0) mg/dL AST 20 D (15-37) U/L ALT 18 (12-78) U/L Alkaline Phosphatase 77 (46-116) U/L Total Protein 7.5 (6.4-8.2) g/dL Albumin 3.0 L (3.4-5.0) g/dL Globulin 4.5 H (2.3-3.5) g/dL Albumin/Globulin Ratio 0.7 L (1.2-2.2) Urine Color Yellow Urine Appearance Cloudy Urine pH 5.0 (4.5-8.0) Ur Specific [place] 1.010 (1.008-1.030) Urine Protein 30 H (NEGATIVE) mg/dL Urine Glucose (UA) Normal (NEGATIVE) mg/dL Urine Ketones Negative (NEGATIVE) mg/dL Urine Occult Blood Large (NEGATIVE) Urine Nitrite Positive H (NEGATIVE) Urine Bilirubin Negative (NEGATIVE) Urine Urobilinogen Normal (NORMAL) mg/dL Ur Leukocyte Esterase Moderate (NEGATIVE) Urine RBC 0-5 (0-5) Urine WBC Semi-packed H (0-5) Ur Epithelial Cells Few Amorphous Sediment Moderate Urine Bacteria Many Urine Mucus Few Meds: Medications Discontinued Medications Generic Name Dose Route Start Last Admin Trade Name Freq PRN Reason Stop Dose Admin Acetaminophen 1,000 mg 09/29/18 21:14 09/29/18 21:19 Tylenol Extra Strength PO 09/29/18 21:15 1,000 mg ONETIME ONE Administration Ceftriaxone Sodium 1 gm/ 50 mls @ 100 mls/hr 09/29/18 20:40 09/29/18 20:58 Sodium Chloride IV 09/29/18 21:09 100 mls/hr ONETIME ONE Administration - Re-Assessments/Exams Free Text/Narrative Re-Assessment/Exam: 09/29/18 20:24 A mini catheter UA was obtained, as well as a CBC CMP and two-view chest x-ray. 09/29/18 20:47 White count returned at 15,800, urine showed markedly positive findings of infection including positive nitrite, packed WBCs and bacteria despite being a catheter urine specimen. Patient was given 1 g of IV Rocephin and a culture initiated. She'll be started on cephalexin 3 times a day for the next 7 days. 09/29/18 22:46 Sodium is 123 which is somewhat concerning, creatinine is 1.4. Patient can consider rechecking his labs within the week when she is feeling better. Departure - Departure Time of Disposition: 21:29 Disposition: Home, Self-Care 01 Condition: Good Clinical Impression: Near syncope UTI (urinary tract infection) Qualifiers: Urinary tract infection type: acute cystitis Hematuria presence: without hematuria Qualified Code(s): N30.00 - Acute cystitis without hematuria - Discharge Information Instructions: Near-Syncope, [id number] Referrals: Matthew Wadsworth MD [Primary Care Provider] - Forms: ED Department Discharge Care Plan Goals: Take antibiotic 3 times a day until gone, starting tomorrow. We will call you if antibiotic needs to be changed. Return anytime if worsening despite medication such as persistent fever, increased pain or confusion. - My Orders Last 24 Hours: My Active Orders 09/29/18 20:49 CULTURE URINE [RM] Stat - Assessment/Plan Last 24 Hours: My Active Orders 09/29/18 20:49 CULTURE URINE [RM] Stat
[2018-09-29] MEDS ORDERED: cefTRIAXone 1 GM in Sodium Chloride 0.9% 50 ML IV ONE (20:40)
--- NOTE | 2018-09-29 21:07 | CRLCR ---
INDICATION: Dyspnea. COMPARISON: 04/25/2016. FINDINGS: PA and lateral views of the chest were obtained. The cardiac silhouette and pulmonary vasculature are within normal limits. The lungs are clear bilaterally. There are degenerative changes in the spine. IMPRESSION: No evidence of acute pulmonary disease. Dictated by Jules Jorge MD @ 09/29/2018 9:04:26 PM Dictated by: Jules Jorge MD @ 09/29/2018 21:04:44 (Electronically Signed)
[2018-09-29 21:09] VITALS: BP 122/55
[2018-09-29] MEDS ORDERED: Acetaminophen 500 MG Tab PO ONE (21:14)
== END 2018-09-29 21:29 | disposition home or self-care (01) ==
LOC: JP.ED 19:36
DX: N30.00 Acute cystitis without hematuria (principal); R55 Syncope and collapse; E78.00 Pure hypercholesterolemia, unspecified; I10 Essential (primary) hypertension; F17.210 Nicotine dependence, cigarettes, uncomplicated; F32.9 Major depressive disorder, single episode, unspecified; E11.9 Type 2 diabetes mellitus without complications; E03.9 Hypothyroidism, unspecified; Z88.8 Allergy status to other drugs, medicaments and biological substances; Z88.5 Allergy status to narcotic agent; Z79.84 Long term (current) use of oral hypoglycemic drugs; Z79.899 Other long term (current) drug therapy
CPT/HCPCS: 36415; 71046; 80053; 81001; 85025; 87086; 87088; 87186; 96365; 99284; A9270; J0696; J7050

== ENCOUNTER → 2018-10-30 | Outpatient (CLI) | payer MEDICARE ==
--- NOTE | 2018-10-30 19:29 | CRLCT ---
INDICATION: Chronic facial pain TECHNIQUE: CT of the paranasal sinuses was performed using sinus protocol without contrast. COMPARISON: None available. FINDINGS: The frontal sinuses are normal. The ethmoid sinuses are normal. There is mild right mastoid sinus mucosal thickening. The sphenoid sinuses are normal. Mucosal thickening causes marked narrowing of the right ostiomeatal unit. Left ostiomeatal unit is open. The nasal septum is at midline. No areas of bony erosion are identified. The orbits are normal. Limited view of the frontal lobes is normal. There is atherosclerotic calcification of the carotid siphons and intracranial right vertebral artery. There is atherosclerotic calcification of the right carotid bifurcation. IMPRESSION: Mild right maxillary sinus mucosal thickening causes marked narrowing of the right ostiomeatal unit. Otherwise unremarkable CT of the paranasal sinuses. Please note that all CT scans at this facility use dose modulation, iterative reconstruction, and/or weight-based dosing when appropriate to reduce radiation dose to as low as reasonably achievable. Dictated by Gianni To MD @ Oct 30 2018 7:27PM Signed by Dr. Gianni To @ Oct 30 2018 7:27PM
== END | disposition home or self-care (01) ==
LOC: JP.CT 11:09
PROVIDERS: ATTEND Family Medicine
DX: R51 Headache (principal); G89.29 Other chronic pain; J34.89 Other specified disorders of nose and nasal sinuses
CPT/HCPCS: 70486

== ENCOUNTER 2018-12-11 07:12 | Day surgery (SDC) | payer MEDICARE ==
[~2018-12-11 07:12] MED LIST: Povidone-Iodine 10% Soln 118.25 ML Bottle ONE
[2018-12-11] MEDS ORDERED: Lactated Ringers 1,000 ML IV SCH (07:30)
[2018-12-11] MEDS ORDERED: ceFAZolin 1 GM in Premix Bag 1 BAG IV ONE (08:30)
[2018-12-11] MEDS ORDERED: Propofol 200 MG/20 ML SDV ONE (08:44)
[2018-12-11] MEDS ORDERED: fentaNYL 100 MCG/2 ML SDV ONE (08:44)
[2018-12-11] MEDS ORDERED: Midazolam 1 MG/ML 2 ML SDV ONE (08:44)
[2018-12-11] MEDS ORDERED: ePHEDrine 50 MG/ML SDV ONE (10:06)
[2018-12-11] MEDS ORDERED: Bupivacaine 0.5%/EPINEPHrine 1:200,000 50 ML MDV ONE (10:22)
[2018-12-11] MEDS: Acetaminophen/oxyCODONE 325-5 MG Tab PO PRN ×2 (11:31→17:55)
[2018-12-11] MEDS ORDERED: Ketorolac 30 MG/ML SDV IVPUSH ONE (13:10)
[2018-12-11] MEDS ORDERED: Ketorolac 60 MG/2 ML SDV IM ONE (13:30)
[2018-12-11] MEDS: Morphine 2 MG/ML Syringe IVPUSH PRN ×2 (16:05→23:00)
[2018-12-11] MEDS: metFORMIN 500 MG Tab PO SCH (16:10)
[2018-12-11] MEDS: Oxybutynin 5 MG Tab PO SCH (20:51)
[2018-12-11] MEDS: Gabapentin 100 MG Cap PO SCH (20:51)
[2018-12-12] MEDS: Acetaminophen/oxyCODONE 325-5 MG Tab PO PRN ×2 (00:09→08:47)
[2018-12-12] MEDS ORDERED: Pantoprazole 40 MG Tab.CR PO SCH (07:30)
[2018-12-12 08:00] VITALS: BP 119/55
[2018-12-12] MEDS: Gabapentin 100 MG Cap PO SCH (08:38)
[2018-12-12] MEDS: Oxybutynin 5 MG Tab PO SCH (08:38)
[2018-12-12] MEDS: metFORMIN 500 MG Tab PO SCH (08:38)
[2018-12-12] MEDS ORDERED: Lisinopril 20 MG Tab PO SCH (09:00)
[2018-12-12] MEDS ORDERED: ESTROGENS CONJUGATED VAG SCH (09:00)
[2018-12-12] MEDS ORDERED: Fluticasone Propionate Nasal Spray 16 GM Bottle NAS SCH (09:00)
[2018-12-12] MEDS ORDERED: atorvaSTATin 20 MG Tab PO SCH (09:00)
[2018-12-12] MEDS ORDERED: Citalopram 20 MG Tab PO SCH (09:00)
--- NOTE | 2018-12-12 12:36 | PCM.DCSUM1 ---
Discharge Summary - Hospital Course Free Text/Narrative:: 68 year old admitted after surgery yesterday. Pain was not well controlled and was not mobile enough for discharge to home. Admitted for pain control and assistance with transfers out of bed, etc. Diagnosis: Stroke: No Modified Matias Scale: No Symptoms at All Modified Cord Scale Score: 0 - Discharge Data Discharge Date: 12/12/18 Discharge Disposition: Home, Self-Care 01 Condition: Good - Patient Summary/Data Operative Procedure(s) Performed: Repair of G. Medius tendon, excision of bursa , release of IT band Complications: None Consults: Consultations 12/11/18 14:48 Consult to Physical Therapy [PT Evaluation and Treatment] [CONS] Routine Please Evaluate and Treat. PT Reason for Consult: Post op Ortho Surgery Pending Discharge: Yes Discharge Disposition: Home w Outpatient Therapy Special Instructions: S/P right Gluteus Medius tendon repiar and IT band release, WBAT on right This query below is only for informational purposes and is not editable. Admission Diagnosis/Problem: Hip pain Hospital Course: Did well overnight. Up this AM with and without PT. No concerns with being home. - Patient Instructions Diet: Usual Diet as Tolerated Activity: Apply Ice, As Tolerated, Full Weight Bearing Showering/Bathing: Shower in AM Wound/Incision, Other: Remove operative dressing tomorrow, light dressing as needed. Notify Provider of: Fever, Increased Pain, Swelling and Redness, Drainage, Nausea and/or Vomiting - Discharge Plan *PRESCRIPTION DRUG MONITORING PROGRAM REVIEWED*: No *COPY OF PRESCRIPTION DRUG MONITORING REPORT IN PATIENT [id number]: No Home Medications: Home Meds Diclofenac Sodium [Voltaren 1% Gel] 4 gm TOP QID PRN 04/14/16 [History] Fluticasone Propionate [Flonase] 2 spray ROS DAILY 04/14/16 [History] Gabapentin [Neurontin] 100 mg PO TID 04/14/16 [History] Lisinopril [Prinivil] 40 mg PO DAILY 04/14/16 [History] Multivitamins,Therapeutic [Thera] 1 each PO DAILY 04/14/16 [History] Omeprazole Magnesium [Prilosec Otc] 20 mg PO DAILY 04/14/16 [History] metFORMIN [Glucophage] 500 mg PO BIDMEALS 04/14/16 [History] atorvaSTATin [Lipitor] 40 mg PO DAILY 04/27/16 [History] Cbd Oil 3 drop PO DAILY 02/28/18 [History] Citalopram [Citalopram HBr] 40 mg PO DAILY 07/10/18 [History] Oxybutynin 5 mg PO BID 07/10/18 [History] Albuterol Sulfate [Proair Hfa] 1 puff IH Q4H PRN 12/09/18 [History] Alendronate Sodium [Fosamax] 70 mg PO .QWEEK 12/09/18 [History] Estrogens, Conjugated [Premarin Vaginal Crm] 1 applic VAG DAILY 12/09/18 [ History] Oxygen Therapy Mode: Room Air Patient Handouts: Hip Rehabilitation After Surgery, Preventing Constipation After Surgery Referrals: Titus Domingo MD [Physician] - 12/24/18 3:00 pm (Please arrive 15 minutes early for appointment) - Discharge Summary/Plan Comment DC Time >30 min.: No - Patient Data Vitals - Most Recent: Last Vital Signs Temp 35.2 C 12/12/18 07:59 Pulse 94 12/12/18 07:59 Resp 16 12/12/18 07:59 BP 119/55 L 12/12/18 08:39 Pulse Ox 95 12/12/18 07:59 Weight - Most Recent: 142.6 kg I&O - Last 24 hours: Intake & Output 12/11/18 12/12/18 12/12/18 22:59 06:59 14:59 Intake Total 1640 720 Balance 1640 720 Med Orders - Current: Current Medications Discontinued Medications Atorvastatin Calcium (Lipitor) 40 mg PO DAILY [facility] Last Admin: 12/12/18 08:38 Dose: 40 mg Bupivacaine HCl/Epinephrine Bitart (Marcaine 0.5%/Epinephrine 1:200,000) Confirm Administered Dose 50 ml .ROUTE .STK-MED ONE Stop: 12/11/18 10:23 Last Admin: 12/11/18 10:23 Dose: 20 ml Citalopram Hydrobromide (Celexa) 40 mg PO DAILY [facility] Last Admin: 12/12/18 08:38 Dose: 40 mg Ephedrine Sulfate (Ephedrine Sulfate) Confirm Administered Dose 50 mg .ROUTE .STK-MED ONE Stop: 12/11/18 10:07 Fentanyl (Sublimaze) Confirm Administered Dose 100 mcg .ROUTE .STK-MED ONE Stop: 12/11/18 08:45 Fluticasone Propionate (Flonase) 0 gm ROS DAILY [facility] Last Admin: 12/12/18 08:37 Dose: Not Given Gabapentin (Neurontin) 100 mg PO TID [facility] Last Admin: 12/12/18 08:38 Dose: 100 mg Cefazolin Sodium/Dextrose 1 gm (/ Premix) 50 mls @ 100 mls/hr IV ONETIME ONE Stop: 12/11/18 08:59 Last Admin: 12/11/18 09:27 Dose: 100 mls/hr Lactated Ringer's (Ringers, Lactated) 1,000 mls @ 75 mls/hr IV ASDIRECTED [facility] Last Admin: 12/11/18 08:59 Dose: 75 mls/hr Ketorolac Tromethamine (Toradol) 60 mg IM ONETIME ONE Stop: 12/11/18 13:31 Last Admin: 12/11/18 13:27 Dose: 60 mg Lisinopril (Prinivil) 40 mg PO DAILY [facility] Last Admin: 12/12/18 08:39 Dose: 40 mg Metformin HCl (Glucophage) 500 mg PO BIDMEALS [facility] Last Admin: 12/12/18 08:38 Dose: 500 mg Midazolam HCl (Versed 1 Mg/Ml) Confirm Administered Dose 2 mg .ROUTE .STK-MED ONE Stop: 12/11/18 08:45 Morphine Sulfate (Morphine) 2 mg IVPUSH Q1H PRN PRN Reason: Pain (severe 7-10) Last Admin: 12/11/18 23:00 Dose: 2 mg Oxybutynin Chloride (Oxybutynin) 5 mg PO BID [facility] Last Admin: 12/12/18 08:38 Dose: 5 mg Oxycodone/Acetaminophen (Percocet 325-5 Mg) 2 tab PO Q6H PRN PRN Reason: Pain Last Admin: 12/12/18 08:47 Dose: 2 tab Pantoprazole Sodium (Protonix) 40 mg PO ACBREAKFAST [facility] Last Admin: 12/12/18 08:38 Dose: 40 mg Povidone Iodine (Betadine 10% Soln) Confirm Administered Dose 1 ml .ROUTE .STK- MED ONE Stop: 12/11/18 07:03 Propofol (Diprivan 20 Ml) Confirm Administered Dose 200 mg .ROUTE .STK-MED ONE Stop: 12/11/18 08:45
--- NOTE | 2018-12-18 17:13 | OR ---
DATE OF PROCEDURE: 12/11/2018 PREOPERATIVE DIAGNOSES: 1. Chronic right hip pain. 2. Partial gluteus medius tendon tear. POSTOPERATIVE DIAGNOSES: 1. Chronic right hip pain. 2. Partial gluteus medius tear. 3. Trochanteric bursitis. PROCEDURE PERFORMED: 1. IT band release, right hip. 2. Repair of gluteus medius tendon, right hip. 3. Excision of trochanteric bursa, right hip. ANESTHESIA: General. INDICATIONS: Norma is a 68-year-old female who has had persistent and progressive pain in her right hip for over a year. She has had physical therapy as well as trochanteric injections. She has obtained only partial and short-lived relief with these measures. MRI reveals evidence of trochanteric bursitis as well as at least tendinopathy of the gluteus medius tendon and probable partial thickness tear. She now presents for open release of the IT band and evaluation of the gluteus medius tendon for possible repair. Risks, benefits, and potential complications of the procedure were discussed. DESCRIPTION OF PROCEDURE: After adequate anesthesia was obtained, patient was placed in lateral decubitus position and secured with the hip positioner. The right hip and leg were then prepped and draped in a sterile fashion. A longitudinal incision was made directly over the tip of the trochanter and carried down through the subcutaneous tissues. Hemostasis was obtained with electrocautery. IT band was split directly over the trochanter. A split was initially made longitudinally. Transverse cuts were then made anterior and superior for a distance of approximately 10 mm on each side. The flaps that were created with the cruciform incision were then resected creating a mehran-shaped release of the IT band. Significant chronic inflammation noted in the trochanteric bursa. This was excised sharply with scissors and use of electrocautery. No abnormality of the trochanter itself was noted. The tendon of the gluteus medius muscle was then evaluated. The posterior aspect was intact. With hip rotated slightly externally, superficial tear was noted within the tendon. This involved just under 50% thickness of the tendon. Decision was made to proceed with the direct repair of the tendon rather than anchoring into the trochanter. Edges were then repaired using #1 Ethibond suture. No other abnormalities were identified. The hip was then irrigated. One Vicryl suture was placed at the superior and inferior ends of the IT band release to prevent propagation. Subcutaneous tissue was then closed with 2-0 Vicryl and a running 3-0 Monocryl on the skin. Steri-Strips were applied. Sterile dressing was then placed. The patient tolerated procedure well. There were no complications. She was taken from the operating room in stable condition. Titus Domingo MD /[id number]
== END 2018-12-12 09:45 | disposition home or self-care (01) ==
LOC: JP.SDS 07:12 → JP.MS 13:45 → JP.SDS 12-12 09:45
PROVIDERS: ATTEND Specialist
DX: S76.311A Strain of muscle, fascia and tendon of the posterior muscle group at thigh level, right thigh, initial encounter (principal); M70.61 Trochanteric bursitis, right hip; I10 Essential (primary) hypertension; I65.29 Occlusion and stenosis of unspecified carotid artery; K21.9 Gastro-esophageal reflux disease without esophagitis; F32.9 Major depressive disorder, single episode, unspecified; E03.9 Hypothyroidism, unspecified; E11.9 Type 2 diabetes mellitus without complications; F17.200 Nicotine dependence, unspecified, uncomplicated; G47.33 Obstructive sleep apnea (adult) (pediatric); X58.XXXA Exposure to other specified factors, initial encounter; Z86.73 Personal history of transient ischemic attack (TIA), and cerebral infarction without residual deficits; Z79.51 Long term (current) use of inhaled steroids; Z79.84 Long term (current) use of oral hypoglycemic drugs; Z79.899 Other long term (current) drug therapy
CPT/HCPCS: 27062; 27299; 27305; 36415; 80048; 85027; A9270; J0690; J1885; J2250; J2270; J2704; J3010; J3490; J7120

== ENCOUNTER 2019-12-10 06:58 | Day surgery (SDC) | payer MEDICARE ==
[~2019-12-10 06:58] MED LIST changes: +Bupivacaine 0.5% 50 ML MDV ONE; +Lidocaine 1% 50 ML MDV ONE; -Povidone-Iodine 10% Soln 118.25 ML Bottle ONE
[2019-12-10] MEDS ORDERED: Propofol 200 MG/20 ML SDV ONE (07:41)
[2019-12-10] MEDS ORDERED: fentaNYL 100 MCG/2 ML SDV ONE (07:41)
[2019-12-10] MEDS ORDERED: Midazolam 1 MG/ML 2 ML SDV ONE (07:41)
[2019-12-10] MEDS ORDERED: Lactated Ringers 1,000 ML IV SCH (07:45)
[2019-12-10] MEDS ORDERED: Nozin Nasal Sanitizer NASBOTH ONE (08:00)
[2019-12-10] MEDS ORDERED: ceFAZolin 1 GM in Premix Bag 1 BAG IV ONE (08:30)
[2019-12-10 10:25] VITALS: BP 166/57; PULSE 69
[2019-12-10] MEDS ORDERED: traMADol 50 MG Tab PO ONE (10:30)
--- NOTE | 2019-12-19 18:37 | OR ---
DATE OF PROCEDURE: 12/10/2019 SURGEON: Titus Domingo MD PREOPERATIVE DIAGNOSIS: Painful hardware, left ankle. POSTOPERATIVE DIAGNOSIS: Painful hardware, left ankle, and fibula. PROCEDURE: Removal of hardware including plate and screws, left fibula. ANESTHESIA: Local with sedation. INDICATIONS: Norma is a 69-year-old female who sustained a fracture dislocation of her left ankle over a year ago. She was treated with open reduction and internal fixation. The fracture has gone on to heal and she has been having increasing tenderness over a prominent hardware in the fibula. She also has several screws in the tibia, which are not problematic. She now presents for removal of the fibular hardware. Risks, benefits, and complications of procedure were discussed. The patient was placed supine with a slight bump under the left hip, and the left foot and ankle were prepped and draped in a sterile fashion. The area over the incision was infiltrated with Marcaine and a previous incision was utilized. This was carried down directly over the hardware. A Aurora elevator was used to remove a layer of scar tissue and the screws were then removed. The plate was removed without difficulty. A rongeur was used to smooth over any bony ridges or soft tissue, which had overgrown the plate and screw holes. Wound was irrigated. It was then closed with 2-0 Vicryl and a running 3-0 Monocryl. Steri-Strips were applied. Light dressing was then placed. The patient tolerated procedure well. There were no complications, taken from the operating room in a stable condition. Titus Domingo MD /[id number]
== END 2019-12-10 10:55 | disposition home or self-care (01) ==
LOC: JP.SDS 06:58
PROVIDERS: ATTEND Specialist
DX: T84.84XA Pain due to internal orthopedic prosthetic devices, implants and grafts, initial encounter (principal); F17.210 Nicotine dependence, cigarettes, uncomplicated; E11.9 Type 2 diabetes mellitus without complications; I10 Essential (primary) hypertension; G47.33 Obstructive sleep apnea (adult) (pediatric); K21.9 Gastro-esophageal reflux disease without esophagitis
CPT/HCPCS: 20680; 36415; 80053; 85027; A9270; J0690; J2250; J2704; J3010; J3490; J7120; J2001

== ENCOUNTER 2021-07-08 16:28 | Emergency (ER) | payer MEDICARE ==
[2021-07-08 17:20] VITALS: PULSE 86
[2021-07-08 17:47] VITALS: BP 121/79
[2021-07-08 19:05] LABS: CORONAVIRUS COVID-19 NAA NEGATIVE (NEGATIVE)
[2021-07-08] MEDS ORDERED: Pantoprazole 40 MG Tab.CR PO SCH (19:15)
== END 2021-07-08 19:21 | disposition home or self-care (01) ==
LOC: JP.ED 16:28
DX: K21.00 Gastro-esophageal reflux disease with esophagitis, without bleeding (principal); E78.00 Pure hypercholesterolemia, unspecified; I10 Essential (primary) hypertension; M19.90 Unspecified osteoarthritis, unspecified site; E11.9 Type 2 diabetes mellitus without complications; E03.9 Hypothyroidism, unspecified; F17.210 Nicotine dependence, cigarettes, uncomplicated; Z91.048 Other nonmedicinal substance allergy status; Z88.8 Allergy status to other drugs, medicaments and biological substances; Z88.1 Allergy status to other antibiotic agents; Z88.6 Allergy status to analgesic agent; Z88.5 Allergy status to narcotic agent; Z79.82 Long term (current) use of aspirin; Z79.899 Other long term (current) drug therapy; Z20.822 Contact with and (suspected) exposure to COVID-19
CPT/HCPCS: 0241U; 36415; 71045; 80053; 84484; 85025; 93005; 93010; 99284; 99285; A9270

== ENCOUNTER → 2021-08-11 | Day surgery (SDC) | payer MEDICARE ==
[~2021-08-11] MED LIST changes: -Bupivacaine 0.5% 50 ML MDV ONE; -Lidocaine 1% 50 ML MDV ONE; +Propofol 200 MG/20 ML SDV ONE; +Sodium Chloride 0.9% 1,000 ML IV SCH; +fentaNYL 100 MCG/2 ML SDV ONE
[2021-08-11 13:22] VITALS: BP 134/63; PULSE 83
== END ==
LOC: JP.SDS 09:37
PROVIDERS: ATTEND Surgery
DX: R10.13 Epigastric pain (principal); G47.33 Obstructive sleep apnea (adult) (pediatric); F17.210 Nicotine dependence, cigarettes, uncomplicated; K21.9 Gastro-esophageal reflux disease without esophagitis; E11.9 Type 2 diabetes mellitus without complications; E03.9 Hypothyroidism, unspecified
CPT/HCPCS: 43239; 88305; J2704; J3010; J7030

== ENCOUNTER 2022-07-14 07:40 | Day surgery (SDC) | payer MEDICARE ==
[~2022-07-14 07:40] MED LIST changes: +Lactated Ringers 1,000 ML IV SCH; -Propofol 200 MG/20 ML SDV ONE; -Sodium Chloride 0.9% 1,000 ML IV SCH; -fentaNYL 100 MCG/2 ML SDV ONE
[2022-07-14] MEDS ORDERED: Propofol 200 MG/20 ML SDV ONE ×2 (07:59→10:27)
[2022-07-14] MEDS ORDERED: fentaNYL 50 MCG/ML SDV ONE (08:00)
[2022-07-14] MEDS ORDERED: Midazolam 1 MG/ML 2 ML SDV ONE (08:00)
[2022-07-14] MEDS ORDERED: Lactated Ringers 1,000 ML IV SCH (08:30)
[2022-07-14 11:20] VITALS: BP 111/52; PULSE 60
== END 2022-07-14 11:30 | disposition home or self-care (01) ==
LOC: JP.SDS 07:40
PROVIDERS: ATTEND Student in an Organized Health Care Education/Training Program
DX: K63.5 Polyp of colon (principal); I10 Essential (primary) hypertension; G47.33 Obstructive sleep apnea (adult) (pediatric); E11.9 Type 2 diabetes mellitus without complications; F17.200 Nicotine dependence, unspecified, uncomplicated; Z79.899 Other long term (current) drug therapy; Z88.5 Allergy status to narcotic agent; Z88.8 Allergy status to other drugs, medicaments and biological substances; Z88.3 Allergy status to other anti-infective agents
CPT/HCPCS: 88305; J2250; J2704; J3010; J7120

== ENCOUNTER 2023-09-05 07:17 | Day surgery (SDC) | payer MEDICARE ==
[2023-09-05 08:10] LABS: HEMATOCRIT 33.6 % (34.3-46.0); HEMOGLOBIN 11.4 g/dL (11.2-15.5); MEAN CORPUSCULAR HEMOGLOBIN 31.4 pg (31.6-35.5); MEAN CORPUSCULAR HGB CONC 33.9 g/dL (31.6-35.5); MEAN CORPUSCULAR VOLUME 92.6 fL (81.4-99.0); RED BLOOD CELL COUNT 3.63 M/uL (3.77-5.24); WHITE BLOOD CELL COUNT,WBC 7.9 K/uL (3.2-11.0)
[2023-09-05] MEDS ORDERED: fentaNYL 250 MCG/5 ML SDV ONE (08:21)
[2023-09-05] MEDS ORDERED: Neostigmine Methylsulfate 10 MG/10 ML MDV ONE (08:22)
[2023-09-05] MEDS ORDERED: Dexamethasone 4 MG/ML SDV ONE (08:22)
[2023-09-05] MEDS ORDERED: Succinylcholine 200 MG/10 ML MDV ONE (08:22)
[2023-09-05] MEDS ORDERED: Glycopyrrolate 0.2 MG/ML 5 ML MDV ONE (08:22)
[2023-09-05] MEDS ORDERED: Rocuronium 50 MG/5 ML Vial ONE (08:22)
[2023-09-05] MEDS ORDERED: Propofol 200 MG/20 ML SDV ONE (08:22)
[2023-09-05] MEDS ORDERED: Ondansetron 4 MG/2 ML SDV ONE (08:22)
[2023-09-05 08:31] LABS: A/G RATIO 0.8 (1.2-2.2); ALANINE AMINOTRANSFERASE,ALT 27 U/L (12-78); ALBUMIN 3.3 g/dL (3.4-5.0); ALKALINE PHOSPHATASE 57 U/L (46-116); ASPARTATE AMNIOTRANSFERASE,AST 27 U/L (15-37); BILIRUBIN TOTAL 0.4 mg/dL (0.2-1.0); BLOOD UREA NITROGEN,BUN 17 mg/dL (7-18); CALCIUM 8.9 mg/dL (8.5-10.1); CARBON DIOXIDE,CO2 26 mmol/L (21-32); CHLORIDE,CL 102 mmol/L (100-108); CREATININE 0.9 mg/dL (0.6-1.0); EST CRCL DRUG DOSING (CG) 47.36 mL/min; ESTIMATED GFR 67 mL/min (>60); GLUCOSE RANDOM 112 mg/dL (74-106); POTASSIUM,K 3.9 mmol/L (3.6-5.2); PROTEIN TOTAL,TP 7.5 g/dL (6.4-8.2); SODIUM,NA 139 mmol/L (140-148)
[2023-09-05 08:38] LABS: ANION GAP 14.9 mmol/L (5.0-14.0)
[2023-09-05] MEDS: Lactated Ringers 1,000 ML IV SCH (08:46)
[2023-09-05] MEDS: Nozin Nasal Sanitizer NASBOTH ONE (08:47)
[2023-09-05] MEDS ORDERED: ceFAZolin 2 GM in Sodium Chloride 0.9% 100 ML IV ONE (09:30)
[2023-09-05] MEDS: ceFAZolin 2 GM in Premix Bag 1 BAG IV ONE (10:35)
[2023-09-05] MEDS ORDERED: ePHEDrine 50 MG/ML SDV ONE (11:06)
[2023-09-05] MEDS: Bupivacaine 0.5% 30 ML SDV ONE (11:20)
[2023-09-05] MEDS ORDERED: Lactated Ringers 1,000 ML ONE (11:55)
[2023-09-05] MEDS: Acetaminophen/HYDROcodone 325-5 MG Tab PO PRN (13:42)
[2023-09-05 14:29] VITALS: BP 167/85; PULSE 88
== END 2023-09-05 14:25 | disposition home or self-care (01) ==
LOC: JP.SDS 07:17
PROVIDERS: ATTEND Specialist
DX: S52.571A Other intraarticular fracture of lower end of right radius, initial encounter for closed fracture (principal); E11.9 Type 2 diabetes mellitus without complications; K21.9 Gastro-esophageal reflux disease without esophagitis; X58.XXXA Exposure to other specified factors, initial encounter
CPT/HCPCS: 25609; 36415; 76000; 80053; 85027; 86850; 86900; 86901; 93005; A9270; C1713; C1776; J0665; J0690; J1100; J2405; J2704; J2710; J3010; J3490; J7120; J0330

== ENCOUNTER 2024-04-16 05:54 | Day surgery (SDC) | payer MEDICARE ==
[2024-04-16] MEDS: Nozin Nasal Sanitizer NASBOTH ONE (06:48)
[2024-04-16] MEDS: Lactated Ringers 1,000 ML IV SCH (07:01)
[2024-04-16] MEDS ORDERED: Propofol 200 MG/20 ML SDV ONE (07:23)
[2024-04-16] MEDS ORDERED: Ondansetron 4 MG/2 ML SDV ONE (07:23)
[2024-04-16] MEDS ORDERED: Succinylcholine 200 MG/10 ML MDV ONE (07:23)
[2024-04-16] MEDS ORDERED: Glycopyrrolate 0.2 MG/ML 5 ML MDV ONE (07:23)
[2024-04-16] MEDS ORDERED: Dexamethasone 4 MG/ML SDV ONE (07:23)
[2024-04-16] MEDS ORDERED: Rocuronium 50 MG/5 ML Vial ONE (07:23)
[2024-04-16] MEDS ORDERED: fentaNYL 250 MCG/5 ML SDV ONE (07:23)
[2024-04-16] MEDS ORDERED: Neostigmine Methylsulfate 10 MG/10 ML MDV ONE (07:23)
[2024-04-16] MEDS: ceFAZolin 2 GM in Premix Bag 1 BAG IV ONE (07:55)
[2024-04-16] MEDS: Bupivacaine 0.5% 50 ML MDV ONE (08:23)
[2024-04-16 09:27] VITALS: BP 158/96; PULSE 92
== END 2024-04-16 09:59 | disposition home or self-care (01) ==
LOC: JP.SDS 05:54
PROVIDERS: ATTEND Specialist
DX: S83.272A Complex tear of lateral meniscus, current injury, left knee, initial encounter (principal); M22.42 Chondromalacia patellae, left knee; I12.9 Hypertensive chronic kidney disease with stage 1 through stage 4 chronic kidney disease, or unspecified chronic kidney disease; E11.22 Type 2 diabetes mellitus with diabetic chronic kidney disease; N18.30 Chronic kidney disease, stage 3 unspecified; E11.42 Type 2 diabetes mellitus with diabetic polyneuropathy; E03.9 Hypothyroidism, unspecified; F41.9 Anxiety disorder, unspecified; K21.9 Gastro-esophageal reflux disease without esophagitis; F17.210 Nicotine dependence, cigarettes, uncomplicated; Z79.82 Long term (current) use of aspirin; Z79.899 Other long term (current) drug therapy; X58.XXXA Exposure to other specified factors, initial encounter
CPT/HCPCS: 01400; 29881; A9270; J0665; J0690; J1100; J2405; J2704; J3010; J7120; J0330; J1596; J2710; J3490

== ENCOUNTER 2024-11-30 10:14 | Emergency (ER) | payer MEDICARE ==
[2024-11-30] MEDS: Sucralfate 1 GM Tab PO ONE (11:12)
[2024-11-30 11:17] LABS: BASOPHILS ABSOLUTE AUTO 0.06 K/uL (0.00-0.10); BASOPHILS PERCENT AUTO 0.5 % (0.1-1.3); EOSINOPHILS ABSOLUTE AUTO 0.13 K/uL (0.00-0.40); HEMATOCRIT 37.1 % (34.3-46.0); HEMOGLOBIN 12.5 g/dL (11.2-15.5); IMMATURE GRAN ABSOLUTE AUTO 0.06 K/uL (0.00-0.23); IMMATURE GRAN PERCENT AUTO 0.5 % (0.0-0.7); LYMPHOCYTES ABSOLUTE AUTO 2.69 K/uL (0.8-3.3); LYMPHOCYTES PERCENT AUTO 20.8 % (11.4-47.7); MEAN CORPUSCULAR HEMOGLOBIN 32.3 pg (31.6-35.5); MEAN CORPUSCULAR HGB CONC 33.7 g/dL (31.6-35.5); MEAN CORPUSCULAR VOLUME 95.9 fL (81.4-99.0); MONOCYTES ABSOLUTE AUTO 1.08 K/uL (0.20-0.90); MONOCYTES PERCENT AUTO 8.3 % (3.3-12.6); NEUTROPHILS ABSOLUTE AUTO 8.94 K/uL (1.0-7.6); NEUTROPHILS PERCENT AUTO 68.9 % (40.0-78.1); PLATELET COUNT,PLT 304 K/uL (130-375); RED BLOOD CELL COUNT 3.87 M/uL (3.77-5.24)
[2024-11-30 11:39] LABS: A/G RATIO 0.8 (1.2-2.2); ALANINE AMINOTRANSFERASE,ALT 38 U/L (12-78); ALBUMIN 3.1 g/dL (3.4-5.0); ALKALINE PHOSPHATASE 87 U/L (46-116); ASPARTATE AMNIOTRANSFERASE,AST 41 U/L (15-37); BILIRUBIN TOTAL 0.4 mg/dL (0.2-1.0); BLOOD UREA NITROGEN,BUN 23 mg/dL (7-18); CALCIUM 8.9 mg/dL (8.5-10.1); CARBON DIOXIDE,CO2 28 mmol/L (21-32); CHLORIDE,CL 101 mmol/L (100-108); CREATININE 1.1 mg/dL (0.6-1.0); EST CRCL DRUG DOSING (CG) 41.37 mL/min; ESTIMATED GFR 52 mL/min (>60); GLUCOSE RANDOM 189 mg/dL (74-106); POTASSIUM,K 3.7 mmol/L (3.6-5.2); PROTEIN TOTAL,TP 7.2 g/dL (6.4-8.2); SODIUM,NA 135 mmol/L (140-148)
[2024-11-30 11:45] LABS: ANION GAP 9.7 mmol/L (5.0-14.0)
[2024-11-30 13:42] VITALS: BP 164/65; PULSE 68
== END 2024-11-30 14:44 | disposition home or self-care (01) ==
LOC: JP.ED 10:14
DX: K85.90 Acute pancreatitis without necrosis or infection, unspecified (principal); I10 Essential (primary) hypertension; E78.00 Pure hypercholesterolemia, unspecified; E11.9 Type 2 diabetes mellitus without complications; E03.9 Hypothyroidism, unspecified; Z91.048 Other nonmedicinal substance allergy status; Z88.8 Allergy status to other drugs, medicaments and biological substances; Z79.51 Long term (current) use of inhaled steroids; Z79.899 Other long term (current) drug therapy
CPT/HCPCS: 36415; 76705; 80053; 83690; 85025; 99284; A9270